=== PATIENT | female | born 1955 | race Caucasian/White ===

== ENCOUNTER 2022-07-06 11:12 | Emergency (ER) | payer MEDICARE, MEDICAID, SELFPAY ==
[2022-07-06 11:27] VITALS: BP 105/69; PULSE 95; RESP 14; TEMP 37.2; O2SAT 96; BMI 16.5
--- NOTE | 2022-07-06 16:58 | PC.NURSE ---
ATTEMPTED TO CALL PATIENT INTO ED. NO ANSWER IN WAITING ROOM
== END 2022-07-06 17:30 | disposition left against medical advice (07) ==
PROVIDERS: Emergency Provider Emergency Medicine
DX: R51.9 Headache, unspecified (principal); R04.0 Epistaxis
CPT/HCPCS: 99281

== ENCOUNTER 2023-03-22 05:50 | Emergency (ER) | payer MEDICARE, MEDICAID, SELFPAY ==
--- NOTE | 2023-03-22 | ECG_ITS ---
Test Reason : SOB Blood Pressure : / mmHG Vent. Rate : 092 BPM Atrial Rate : 092 BPM P-R Int : 118 ms QRS Dur : 088 ms QT Int : 354 ms P-R-T Axes : 075 058 062 degrees QTc Int : 437 ms Poor data quality, interpretation may be adversely affected Normal sinus rhythm Normal ECG When compared with ECG of 08-MAY-2011 11:28, No significant change was found Referred By: Generic ED Physician Electronically Signed By:MIKE BURCIAGA MD
--- NOTE | ~2023-03-22 | XR_ITS ---
EXAMINATION: XR CHEST CLINICAL INFORMATION: Dyspnea COMPARISON: None available. TECHNIQUE: Frontal view of the chest was obtained. FINDINGS: The lungs are hyperinflated, suspicious for underlying COPD. No focal consolidation is seen. No evidence of pneumothorax, pleural effusion, or pulmonary edema. The cardiomediastinal contour is unremarkable. No acute osseous findings are seen. XR/XR chest 1V IMPRESSION: Hyperinflated lungs suspicious for COPD. No acute findings identified.
[2023-03-22 05:59] VITALS: BP 104/71; BP 130/97; PULSE 56; PULSE 93; RESP 29; TEMP 36.9; O2SAT 90; O2SAT 97; BMI 18.3
[2023-03-22 06:08] VITALS: PULSE 98; RESP 24; O2SAT 97
[2023-03-22] MEDS: Albuterol Sulfate 2.5 MG, Albuterol Sulfate (0.083%) 2.5 MG 5 MG INHALE (06:16)
[2023-03-22] MEDS: Albuterol/Iprat 2.5/0.5MG 3 ML AMPUL.NEB INHALE (06:16)
[2023-03-22 06:17] LABS: Basophils Absolute Auto 0.1 X10*3/uL (0.0-0.2); Basophils Percent Auto 0.4 % (0-2); Eosinophils Absolute Auto 0.3 X10*3/uL (0.0-0.4); Hematocrit 38.6 % (37.0-47.0); Hemoglobin 12.7 g/dl (12.0-16.0); Imm Gran Abs Auto 0.06 X10*3/uL (0.00-0.03); Imm Gran Pct Auto 0.4 % (0.0-0.4); Lymphocytes Absolute Auto 2.2 X10*3/uL (1.2-4.9); Lymphocytes Percent Auto 16.2 % (20-40); MANUAL DIFF FLAG NO; Mean Corpuscular HGB Conc 32.9 g/dl (31.0-35.0); Mean Corpuscular Hemoglobin 31.8 pg (27.0-33.0); Mean Corpuscular Volume 96.5 fL (80.0-98.0); Mean Platelet Volume 10.1 fL (9.4-12.3); Monocytes Absolute Auto 0.7 X10*3/uL (0.1-1.2); Monocytes Percent Auto 5.3 % (2-11); Neutrophils Absolute Auto 10.3 x10*3/uL (2.0-8.3); Neutrophils Percent Auto 75.7 % (45-73); Platelet Count 267 X10*3/uL (160-400); Red Cell Distribution Width 12.3 % (11.0-16.0); White Blood Count 13.7 X10*3/uL (4.8-10.8)
[2023-03-22] MEDS: methylPREDNISolone Sod Succ 125 MG/2 ML VIAL IVPUSH (06:19)
[2023-03-22] MEDS: guaiFEN/Codeine SF 200/20/10ML 10 ML LIQUID PO (06:25)
[2023-03-22 06:26] VITALS: BP 137/98; PULSE 107; RESP 28; O2SAT 95
[2023-03-22 06:31] LABS: Alanine Aminotransferase 14 U/L (0-31); Albumin Level 3.6 g/dL (3.5-5.0); Alkaline Phosphatase 94 U/L (39-117); Anion Gap 12 (12-20); Aspartate Amino Transferase 16 U/L (5-31); Bilirubin Total 0.2 mg/dL (0.0-1.0); Blood Urea Nitrogen 11 mg/dL (9-16); COVID-19 Test Negative (Negative); Calcium 8.8 mg/dL (8.4-10.2); Carbon Dioxide 25 mmol/L (22-29); Chloride 111 mmol/L (96-108); Creatinine Clr Calc Pharmacy 55.8; Estimated Glomerular Filt Rate > 60; Glucose Random 99 mg/dL (60-115); IDNOW Serial# 6674DD1D; Sodium 145 mmol/L (135-145); Total Protein 6.4 g/dL (6.5-8.0)
--- NOTE | 2023-03-22 06:52 | ED_ITS ---
HPI - SOB/Dyspnea General Chief Complaint: Dyspnea Stated Complaint: Difficulty breathing Time Seen by Provider: 03/22/23 06:38 Source: patient Mode of arrival: ambulatory Limitations: no limitations History of Present Illness HPI Narrative: This is a 67-year-old female history of emphysema, presenting to the emergency department with worsening dry cough, patient reports is been going on for a week however significantly worse over the past 2 days, patient reports she is taking treatments at home with little to no relief. According to report obtained by EMS and nursingpatient was hypoxic and with labored breathing upon her arrival and was having difficulty speaking in full sentences. Patient reports sore chest with cough however no chest pain. She denies sick contacts. She denies fevers, chills, nausea, vomiting, abdominal pain, headache, vision changes, dizziness, weakness, fevers and chills. Patient former smoker however no longer smokes. Related Data Previous Rx's Medication Instructions Recorded albuterol sulfate 2.5 mg/3 mL 2.5 mg (3 mL) inhalation Q6H #75 mL 03/22/23 (0.083 %) solution for nebulization albuterol sulfate 90 mcg/actuation 2 inh inhalation Q4-6H PRN 03/22/23 breath activated powder inhaler shortness of breath or wheezing #1 ea doxycycline hyclate 100 mg capsule 100 mg PO BID 10 days #20 caps 03/22/23 prednisone 20 mg tablet 40 mg PO DAILY 5 days #10 tabs 03/22/23 Allergies Allergy/AdvReac Type Severity Reaction Status Date / Time No Known Allergies Allergy Verified 03/22/23 06:05 Review of Systems Review of Systems: Constitutional : No Weight loss, No Fever, No Chills, No Fatigue, No Malaise ENT/Mouth : No sore throat, No Rhinorrhea Eyes: No Eye Pain, No Swelling, No Redness Cardiovascular : No Chest Pain, No SOB, No Dyspnea on Exertion, No Orthopnea, No Edema, No Palpitations Respiratory : + Cough, No Sputum, No Wheezing Gastrointestinal : No Nausea, No Vomiting, No Diarrhea, No Constipation, No abdominal Pain, No Hematochezia, No Melena Genitourinary : No Dysuria, No Urinary Frequency, No Hematuria, Musculoskeletal : No joint pain, No Myalgias, No Joint Swelling Skin : No Skin Lesions, No rash Neuro : No Weakness, No Numbness, No Dizziness, No Headache Psych : No Anxiety/Panic, No Depression All other systems reviewed and are negative Yes all other systems are reviewed and are negative [facility] Past Medical History Attestation statement: The following information was validated with the patient. Source: old records reviewed and nursing notes reviewed Social History Social History Alcohol intake: current Alcohol intake frequency: holidays/special occasions only Smoked in Last 30 Days: No Use of substances other than those prescribed or required for medical reasons: No Advance Directives: No Advance Directives Information Provided: Yes Physical Exam Vital Signs: Vital Signs: Last Vital Signs Temp 98.8 F 03/22/23 07:10 Pulse 92 03/22/23 09:30 Resp 18 03/22/23 09:30 BP 135/43 L 03/22/23 09:30 Pulse Ox 95 03/22/23 09:30 O2 Del Method Room Air 03/22/23 09:30 BMI result Body Mass Index 18.3 vss Appearance: Alert.? Oriented X3.? Mild acute distress.? Head: Normocephalic, atraumatic, no step-offs or deformities Eyes: Pupils equal, round and reactive to light.? ENT: Pharynx normal.? Neck: Normal inspection.? Neck supple.? CVS: Normal heart rate and rhythm.? Pulses normal.? Respiratory: mild respiratory distress.? Breath sounds diminished bilaterally with expiratory wheezing throughout.? Abdomen: Soft and nontender.? Skin: Skin warm and dry.? Normal skin color.? Normal skin turgor.? Extremities: No lower extremity edema.? No calf ttp. 5/5 strength to bilateral upper and lower extremities Back: No midline tenderness, no C-spine tenderness, full range of motion, no CVA tenderness bilaterally Neuro: Oriented X 3.? No motor deficit.? No sensory deficit. CN 2-12 intact Course Reevaluation(s) Reevaluation #1: CBC with leukocytosis 13.7, no left shift. Potassium of 3.0 oral potassium ordered. No other abnormalities on chemistry. Patient's COVID is Negative. Chest x-ray with hyperinflated lung suspicious for COPD. Patient receiving breathing treatments saturating low 90s. Continues to cough. patient is tachycardic likely secondary to breathing treatments. Still tachypneic and with labored breathing. Magnesium, blood cultures, lactic acid and ceftriaxone have been ordered. Time: 07:06 Reevaluation #2: lactic acid elevated at 2.2, low potassium 3.0 oral potassium ordered. Patient does have a leukocytosis 13.7, no left shift. I do suspect acute COPD exacerba tion. X-ray consistent with COPD as well. Patient continues to be tachypneic, in mild respiratory distress. She is saturating 90% on room air at rest. Tachycardia likely secondary to breathing treatments. Plan is for hospital admission. Time: 08:25 Reevaluation #3: Patient now tells me she is unable to find manager child for her grandchild therefore will not be staying in the hospital. Patient was evaluated by the hospitalist who also felt like she would benefit from hospital admission. Patient is refusing. She states that she has other responsibilities she has to take care of. Will discharge her home with antibiotics, steroids. And albuterol treatments. Patient will be leaving against medical advice. Patient appears better than she did when she 1st came in. She is no longer tachypneic respiratory rate of 18, saturating 94% on room air. Nonlabored. Will discharge home advised to return if symptoms worsen Time: :25 Medications Administered Discontinued Medications Generic Name Dose Route Start Last Admin Trade Name Freq PRN Reason Stop Dose Admin Albuterol Sulfate 2.5 mg/ 5 mg 03/22/23 06:13 03/22/23 06:16 Albuterol Sulfate 2.5 mg INHALE 03/22/23 06:14 5 mg ONCE ONE Administration Albuterol/Ipratropium 3 ml 03/22/23 06:13 03/22/23 06:16 Albuterol/Iprat 2.5/0.5mg 3 Ml Ampul.Neb INHALE 03/22/23 06:14 3 ml ONCE ONE Administration Guaifenesin/Codeine Phosphate 10 ml 03/22/23 06:21 03/22/23 06:25 Guaifen/Codeine Sf 200/20/10ml 10 Ml Liquid PO 03/22/23 06:22 10 ml ONCE ONE Administration Magnesium Sulfate 2 gm in 50 mls @ 25 mls/hr 03/22/23 06:53 03/22/23 08:04 Magnesium Sulfate/H2o IV 03/22/23 08:52 Infused ONCE ONE Infusion Ceftriaxone Sodium 1 gm/ 50 mls @ 100 mls/hr 03/22/23 07:04 03/22/23 08:04 Sodium Chloride IV 03/22/23 07:33 100 mls/hr ONCE ONE Administration Sodium Chloride 1,000 mls @ 999 mls/hr 03/22/23 08:15 03/22/23 09:04 Ns IV 03/22/23 09:15 999 mls/hr .Q1H1M MADIHA Administration Methylprednisolone Sodium Succinate 125 mg 03/22/23 06:15 03/22/23 06:19 Methylprednisolone Sod Succ 125 Mg/2 Ml Vial IVPUSH 03/22/23 06:16 125 mg ONCE ONE Administration Potassium Chloride 40 meq 03/22/23 06:53 03/22/23 07:06 Potassium Chloride Packet 20 Meq Packet PO 03/22/23 06:54 40 meq ONCE ONE Administration Medical Decision Making Medical Decision Making [facility] Narrative: 0655 67-year-old female presents with dry cough for past week, and difficulty breathing. History of emphysema. Patient does not wear oxygen at home physical exam significant for mild respiratory distress.? Breath sounds diminished bilaterally with expiratory wheezing throughout.? concerns for chronic lung disease versus pneumonia versus allergies versus bronchitis versus viral illness. Unlikely PE, patient without significant risk factors, this seems to be similar to her chronic lung disease flares. unlikely ACS. Plan at this time labs, imaging, breathing treatments, magnesium, Solu-Medrol, VBG Differential Diagnosis Differential Diagnoses: The differential diagnosis associated with the presentation includes concerns for chronic lung disease versus pneumonia versus allergies versus bronchitis versus viral illness. Unlikely PE, patient without significant risk factors, this seems to be similar to her chronic lung disease flares. unlikely ACS. Admission/Observation Consideration of admission/observation: Escalation of care including admission/observation considered possible hospital admission Lab Data [facility] Lab Attestation statement: I reviewed the patient's lab results. 03/22/23 06:11 03/22/23 06:11 Labs: Lab Results 03/22/23 03/22/23 03/22/23 Range/Units 06:11 06:11 06:11 WBC 13.7 H (4.8-10.8) X10*3/uL RBC 4.00 L (4.20-5.50) X10*6/uL Hgb 12.7 (12.0-16.0) g/dl Hct 38.6 (37.0-47.0) % MCV 96.5 (80.0-98.0) fL MCH 31.8 (27.0-33.0) pg MCHC 32.9 (31.0-35.0) g/dl RDW 12.3 (11.0-16.0) % Plt Count 267 (160-400) X10*3/uL MPV 10.1 (9.4-12.3) fL Immature Gran % (Auto) 0.4 (0.0-0.4) % Neut % (Auto) 75.7 H (45-73) % Lymph % (Auto) 16.2 L (20-40) % Davidson % (Auto) 5.3 (2-11) % Eos % (Auto) 2.0 (0-4) % Baso % (Auto) 0.4 (0-2) % Lymph # (Auto) 2.2 (1.2-4.9) X10*3/uL Davidson # (Auto) 0.7 (0.1-1.2) X10*3/uL Eos # (Auto) 0.3 (0.0-0.4) X10*3/uL Baso # (Auto) 0.1 (0.0-0.2) X10*3/uL Abs Immat Gran (auto) 0.06 H (0.00-0.03) X10*3/uL Absolute Neuts (auto) 10.3 H (2.0-8.3) x10*3/uL Absolute Nucleated RBC 0.000 (0.0-0.012) X10*3/uL Nucleated RBC % (auto) 0.0 (0.0-0.2) /100WBC VBG pH (7.32-7.43) VBG pCO2 mmHg VBG pO2 mmHg VBG HCO3 (22-26) mmol/L VBG O2 Saturation % VBG Base Excess mmol/L Sodium 145 (135-145) mmol/L Potassium 3.0 L (3.3-5.1) mmol/L Chloride 111 H (96-108) mmol/L Carbon Dioxide 25 (22-29) mmol/L Anion Gap 12 (12-20) BUN 11 (9-16) mg/dL Creatinine 0.72 (0.5-1.4) mg/dL Estim Creat Clear Calc 55.8 Estimated GFR > 60 Random Glucose 99 (60-115) mg/dL Lactic Acid (0.5-2.0) mmol/L Calcium 8.8 (8.4-10.2) mg/dL Total Bilirubin 0.2 (0.0-1.0) mg/dL AST 16 (5-31) U/L ALT 14 (0-31) U/L Alkaline Phosphatase 94 (39-117) U/L Total Protein 6.4 L (6.5-8.0) g/dL Albumin 3.6 (3.5-5.0) g/dL COVID-19 ([facility]) Negative (Negative) COVID-19 Clin Com See Note 03/22/23 03/22/23 Range/Units 07:40 07:45 WBC (4.8-10.8) X10*3/uL RBC (4.20-5.50) X10*6/uL Hgb (12.0-16.0) g/dl Hct (37.0-47.0) % MCV (80.0-98.0) fL MCH (27.0-33.0) pg MCHC (31.0-35.0) g/dl RDW (11.0-16.0) % Plt Count (160-400) X10*3/uL MPV (9.4-12.3) fL Immature Gran % (Auto) (0.0-0.4) % Neut % (Auto) (45-73) % Lymph % (Auto) (20-40) % Davidson % (Auto) (2-11) % Eos % (Auto) (0-4) % Baso % (Auto) (0-2) % Lymph # (Auto) (1.2-4.9) X10*3/uL Davidson # (Auto) (0.1-1.2) X10*3/uL Eos # (Auto) (0.0-0.4) X10*3/uL Baso # (Auto) (0.0-0.2) X10*3/uL Abs Immat Gran (auto) (0.00-0.03) X10*3/uL Absolute Neuts (auto) (2.0-8.3) x10*3/uL Absolute Nucleated RBC (0.0-0.012) X10*3/uL Nucleated RBC % (auto) (0.0-0.2) /100WBC VBG pH 7.43 (7.32-7.43) VBG pCO2 38 mmHg VBG pO2 65 mmHg VBG HCO3 25 (22-26) mmol/L VBG O2 Saturation 91.0 % VBG Base Excess 1.4 mmol/L Sodium (135-145) mmol/L Potassium (3.3-5.1) mmol/L Chloride (96-108) mmol/L Carbon Dioxide (22-29) mmol/L Anion Gap (12-20) BUN (9-16) mg/dL Creatinine (0.5-1.4) mg/dL Estim Creat Clear Calc Estimated GFR Random Glucose (60-115) mg/dL Lactic Acid 2.2 H* (0.5-2.0) mmol/L Calcium (8.4-10.2) mg/dL Total Bilirubin (0.0-1.0) mg/dL AST (5-31) U/L ALT (0-31) U/L Alkaline Phosphatase (39-117) U/L Total Protein (6.5-8.0) g/dL Albumin (3.5-5.0) g/dL COVID-19 ([facility]) (Negative) COVID-19 Clin Com Independent Interpretation I performed an independent interpretation of an: Plain X-Ray Radiology Impression Discussion of test interpretation with radiology: I have reviewed the radiolog ist's reading. Core Measures AMI core measures followed: Yes Measure exclusions: not indicated Critical Care Time Critical Care Time Critical Care Time: Yes Total Critical Care Time: 35 Attestation: I attest to this time spent taking care of the patient, obtaining history, physical, reviewing labs, imaging Discharge Plan Discharge Clinical Impression: Acute exacerbation of chronic obstructive airways disease, Bronchitis Patient Disposition: Left Against Medical Advice Instructions: Acute Bronchitis (ED), Chronic Bronchitis (ED) Additional Instructions: Take your medications as prescribed. If you were prescribed antibiotics today, it is important that you take your medication to their entirety, do not skip any doses, do not finish them early. Follow-up with your primary care provider this week.follow-up with pulmonology at [facility] who you regularly follow. Return to the emergency department with new or worsening symptoms. Such as fevers, chills, chest pain, shortness of breath, nausea, vomiting, dizziness, headache, vision changes, lethargy In case of emergency call 911 Your leaving against medical advice, medical advice was to be admitted to the hospital, however you stated that you had other obligations to care for. If symptoms worsen please return. Prescriptions: New doxycycline hyclate 100 mg capsule 100 mg PO BID 10 Days Qty: 20 0RF albuterol sulfate 2.5 mg /3 mL (0.083 %) solution for nebulization 2.5 mg inhalation Q6H Qty: 75 0RF prednisone 20 mg tablet 40 mg PO DAILY 5 Days Qty: 10 0RF albuterol sulfate 90 mcg/actuation aerosol powdr breath activated 2 inh inhalation Q4-6H PRN (Reason: shortness of breath or wheezing) Qty: 1 0RF Ref[facility]: [facility] Group] - 2 weeks Stand Alone Forms: Against Medical Advice, Work/School Release Interventions: ED Discharge Assessment Last Done: 03/22/23 09:46
[2023-03-22] MEDS: Magnesium Sulfate/H2O 2 GM/50 ML PIGGYBACK IV (07:06)
[2023-03-22] MEDS: Potassium Chloride Packet 20 MEQ PACKET 40 MEQ PO (07:06)
[2023-03-22 07:10] VITALS: BP 111/50; PULSE 103; RESP 23; TEMP 37.1; O2SAT 90
--- NOTE | 2023-03-22 07:18 | PC.NURSE ---
pt axox4, VSS, sinus tachy on monitor 105-110 bpm, sats remain 88-90% RA, tachypneic; pt placed on 2L NC sats 92%. expiratory wheezes auscultated throughout. skin wpd. cap refill <3 secs. pt medicated per oct. pt denies having questions at this time; call seth within reach.
[2023-03-22 07:53] LABS: VBG Base Excess 1.4 mmol/L; VBG HCO3 25 mmol/L (22-26); VBG pCO2 38 mmHg; VBG pH 7.43 (7.32-7.43); VBG pO2 65 mmHg
[2023-03-22 07:53] LABS: Venous Blood Gas Refer to POC result
[2023-03-22] MEDS: cefTRIAXone sodium 1 GM in 0.9 % Sodium Chloride 50 ML IV (08:04)
[2023-03-22 08:13] LABS: Lactic Acid 2.2 mmol/L (0.5-2.0)
[2023-03-22] MEDS: 0.9 % Sodium Chloride 1,000 ML 999 ML IV (09:04)
[2023-03-22 09:30] VITALS: BP 135/43; PULSE 92; RESP 18; O2SAT 95
[2023-03-22 09:47] LABS: Reflex Lactate? Lactic Acid Added
== END 2023-03-23 03:05 | disposition left against medical advice (07) ==
PROVIDERS: Emergency Medicine; Physician Assistant; Emergency Provider Emergency Medicine; PCP Internal Medicine
DX: J44.1 Chronic obstructive pulmonary disease with (acute) exacerbation (principal); J40 Bronchitis, not specified as acute or chronic; Z87.891 Personal history of nicotine dependence; Z79.899 Other long term (current) drug therapy; Z20.822 Contact with and (suspected) exposure to COVID-19
CPT/HCPCS: 36415; 71045; 80053; 82803; 83605; 85025; 87040; 87635; 93005; 94640; 94664; 96361; 96365; 96366; 96367; 96375; 99285; J0696; J2930; J3475

== ENCOUNTER → 2023-03-22 06:04 | Outpatient (BNV) | payer MEDICARE, MEDICAID, SELFPAY | PROVIDERS: Emergency Provider Emergency Medicine; PCP Internal Medicine; Visit Provider Internal Medicine Cardiovascular Disease | DX: R06.02 Shortness of breath (principal) | CPT/HCPCS: 93010 ==

== ENCOUNTER 2023-03-24 10:12 | Observation (INO) | payer OTHER, SELFPAY ==
[2023-03-24] VITALS (9 sets, daily range): BP systolic 112–140; BP diastolic 52–90; PULSE 86–102; RESP 16–28; TEMP 36.6–36.9; O2SAT 94–99; BMI 18.1
--- NOTE | ~2023-03-24 | XR_ITS ---
EXAMINATION: XR CHEST CLINICAL INFORMATION: Dyspnea. COMPARISON: 03/22/2023 portable chest. TECHNIQUE: Frontal view of the chest was obtained. FINDINGS: Mild lung hyperinflation and mild coarse interstitial markings without focal abnormality or change. The heart and mediastinal structures are unremarkable. XR/XR chest 1V IMPRESSION: Probable chronic mild interstitial changes without cement change. No acute cardiopulmonary process.
--- NOTE | 2023-03-24 10:49 | ECG_ITS ---
Test Reason : SOB Blood Pressure : / mmHG Vent. Rate : 090 BPM Atrial Rate : 090 BPM P-R Int : 114 ms QRS Dur : 084 ms QT Int : 348 ms P-R-T Axes : 062 060 061 degrees QTc Int : 425 ms Normal sinus rhythm Normal ECG When compared with ECG of 22-MAR-2023 06:04, No significant change was found Referred By: Magen Ying Electronically Signed By:MIKE BURCIAGA MD
[2023-03-24] MEDS: Albuterol Sulfate 7.5 MG, Albuterol/Iprat 2.5/0.5MG 3 ML 3 ML INHALE (11:22)
[2023-03-24] MEDS: Magnesium Sulfate/H2O 2 GM/50 ML PIGGYBACK IV (11:52)
[2023-03-24] MEDS: methylPREDNISolone Sod Succ 125 MG/2 ML VIAL IVPUSH (11:52)
[2023-03-24 11:58] LABS: MANUAL DIFF FLAG NO
[2023-03-24 12:00] LABS: Basophils Percent Auto 0.5 % (0-2); Eosinophils Percent Auto 0.1 % (0-4); Hematocrit 43.5 % (37.0-47.0); Hemoglobin 13.9 g/dl (12.0-16.0); Imm Gran Abs Auto 0.04 X10*3/uL (0.00-0.03); Imm Gran Pct Auto 0.5 % (0.0-0.4); Lymphocytes Absolute Auto 1.2 X10*3/uL (1.2-4.9); Lymphocytes Percent Auto 14.4 % (20-40); Mean Corpuscular Hemoglobin 31.4 pg (27.0-33.0); Mean Corpuscular Volume 98.2 fL (80.0-98.0); Monocytes Absolute Auto 0.1 X10*3/uL (0.1-1.2); Monocytes Percent Auto 1.6 % (2-11); Neutrophils Absolute Auto 6.8 x10*3/uL (2.0-8.3); Neutrophils Percent Auto 82.9 % (45-73); Platelet Count 315 X10*3/uL (160-400); Red Blood Count 4.43 X10*6/uL (4.20-5.50); Red Cell Distribution Width 12.3 % (11.0-16.0); White Blood Count 8.2 X10*3/uL (4.8-10.8)
[2023-03-24 12:01] LABS: Appearance Urine Clear; Color Urine Yellow; Glucose Urine UA Negative (Negative); Leukocyte Esterase Urine Negative (Negative); Nitrite Urine Negative (Negative); PH 5.5 (5.0-9.0); Specific Gravity - Urine <= 1.005 (1.005-1.025); Urine Blood Negative (Negative); Urine Ketones Negative (Negative); Urine Protein Negative (Neg-Trace)
[2023-03-24 12:05] LABS: INTERNATIONAL NORM RATIO 0.9 (0.9-1.1); Prothrombin Time 11.1 SEC (11.1-13.3)
[2023-03-24 12:07] LABS: Partial Thromboplastin Time 29.3 SEC (26.0-36.4)
[2023-03-24 12:13] LABS: COVID-19 Test Negative (Negative); IDNOW Serial# 08D9AD1C
[2023-03-24 12:19] LABS: Anion Gap 13 (12-20); Blood Urea Nitrogen 13 mg/dL (9-16); Calcium 9.4 mg/dL (8.4-10.2); Carbon Dioxide 25 mmol/L (22-29); Chloride 109 mmol/L (96-108); Estimated Glomerular Filt Rate > 60; Glucose Random 119 mg/dL (60-115); Potassium 4.4 mmol/L (3.3-5.1); Sodium 143 mmol/L (135-145)
[2023-03-24 12:20] LABS: Lactic Acid 3.9 mmol/L (0.5-2.0)
--- NOTE | 2023-03-24 12:33 | PHA.MEDREC ---
Pharmacy Consult ? Medication Reconciliation Pharmacy has completed the medication reconciliation. spoke with patient to confirm medications. She was recently prescribed Breztri inhaler but has not opened it or used it.
--- NOTE | 2023-03-24 12:37 | ED.SOB ---
HPI - SOB/Dyspnea General Chief Complaint: Dyspnea Stated Complaint: SOB X'S 2 DAYS Time Seen by Provider: 03/24/23 10:17 Source: patient and EMS Mode of arrival: EMS Limitations: no limitations History of Present Illness HPI Narrative: 67-year-old female with history of COPD, currently on oxygen presents with shortness of breath. Patient was initially evaluated on March 22. She presented with a dry cough, shortness of breath for period of 1 week. However over the previously 2 days, patient was complaining of progressive worsening that her home treatments were not Assisting. She was transported by ambulance. She was found to be hypoxic with labored respirations. She was having difficulty speaking in complete sentences. Patient was recommended to be admitted to the hospital. However, she is side that she needs to leave because of childcare for grandchild. However her symptoms have been progressing ever since her bleeding from the emergency department. MD elicited complaint: shortness of breath and cough Pertinent past history: COPD Onset (ago): day(s) (10) Timing: constant Severity: severe Exacerbating factors: exertion Relieving factors: rest Associated symptoms: cough and wheezing Treatment prior to arrival: none Related Data Home oxygen amount: none Home Medications Medication Instructions Recorded Confirmed aspirin 81 mg tablet,delayed 81 mg PO DAILY 03/24/23 03/24/23 release bupropion HCl 150 mg tablet,12 hr 150 mg PO BID 03/24/23 03/24/23 sustained-release hiprmabqfv-bggaflqihclbn-gqrlsruo 1 tab PO DAILY PRN Headache 03/24/23 03/24/23 50 mg-325 mg-40 mg tablet calcium carbonate 600 mg-vitamin 1 tab PO BID 03/24/23 03/24/23 D3 10 mcg (400 unit) tablet diazepam 5 mg tablet 5 mg PO QID PRN Anxiety 03/24/23 03/24/23 fluticasone fur. 100 mcg-umeclid 1 ea inhalation DAILY 03/24/23 03/24/23 62.5 mcg-vilant 25 mcg inhalat.powder (Trelegy Ellipta) hydroxyzine HCl 25 mg tablet 12.5 mg PO BEDTIME PRN Sleep 03/24/23 03/24/23 nicotine 21 mg/24 hr daily 1 patch topical DAILY 03/24/23 03/24/23 transdermal patch Previous Rx's Medication Instructions Recorded albuterol sulfate 2.5 mg/3 mL 2.5 mg (3 mL) inhalation Q6H #75 mL 03/22/23 (0.083 %) solution for nebulization albuterol sulfate 90 mcg/actuation 2 inh inhalation Q4-6H PRN 03/22/23 breath activated powder inhaler shortness of breath or wheezing #1 ea doxycycline hyclate 100 mg capsule 100 mg PO BID 10 days #20 caps 03/22/23 prednisone 20 mg tablet 40 mg PO DAILY 5 days #10 tabs 03/22/23 Allergies Allergy/AdvReac Type Severity Reaction Status Date / Time No Known Allergies Allergy Verified 03/22/23 06:05 Review of Systems Review of Systems: CONSTITUTIONAL: Denies weight loss, fever and chills. HEENT: Denies changes in vision and hearing. RESPIRATORY: + SOB and cough. CV: Denies palpitations no CP. GI: Denies abdominal pain, nausea, vomiting and diarrhea. : Denies dysuria and urinary frequency. MSK: Denies myalgia and joint pain. SKIN: Denies rash and pruritus. NEUROLOGICAL: Denies headache and syncope. PSYCHIATRIC: Denies recent changes in mood. Denies anxiety and depression. All other ROS are negative unless in [facility] Social History Social History Alcohol intake: current Alcohol intake frequency: holidays/special occasions only Smoked in Last 30 Days: Yes Use of substances other than those prescribed or required for medical reasons: No Advance Directives: No Physical Exam Vital Signs: Vital Signs: Last Vital Signs Temp 98.1 F 03/24/23 10:16 Pulse 86 03/24/23 11:22 Resp 26 H 03/24/23 11:22 BP 112/60 03/24/23 10:16 Pulse Ox 99 03/24/23 10:16 O2 Del Method Room Air 03/24/23 10:16 BMI result Body Mass Index 18.1 GEN: Well developed, no acute distress, alert, oriented HEENT: Normocephalic, atraumatic, normal external ears, nose appears normal, no oropharyngeal edema or exudates Eyes: Normal to appearance Neck: Supple, no lymphadenopathy Respiratory: Tachypnea, cough, prolonged expiration, no wheezes, accessory muscle use, clear to auscultation bilaterally Cardiovascular: Regular rate and rhythm, no murmurs rubs or gallops Abdomen: Soft, nontender, nondistended, no guarding, no rebound Back: No CVA tenderness Extremities: No clubbing cyanosis or edema Neurologic: No focal neurologic deficits, cranial nerves 2-12 intact, strength is 5/5 bilaterally Skin: No rash Course Reevaluation(s) Reevaluation #1: patient has received DuoNeb x3, is feeling somewhat improved. Time: 12:30 Reevaluation #2: Patient does have an elevated lactic acid level. I do not believe patient is septic however, I will order antibiotics for COPD exacerbation and I will order IV fluids as well. Reevaluation #3: I have ordered an ABG to assess her acid-base status as well as her gas exchange capability. Patient continues to be tachypneic. Time: 12:49 Consultations Consultation #1: Hospitalist accepted patient to their service. Time: 14:14 Medications Administered Generic Name Dose Route Start Last Admin Trade Name Freq PRN Reason Stop Dose Admin Azithromycin 500 mg/ Sodium 250 mls @ 125 mls/hr 03/24/23 12:48 03/24/23 13:28 Chloride IV 03/24/23 14:47 125 mls/hr ONCE ONE Administration Discontinued Medications Generic Name Dose Route Start Last Admin Trade Name Freq PRN Reason Stop Dose Admin Albuterol Sulfate 7.5 mg/ 0 mg 03/24/23 10:47 03/24/23 11:22 Albuterol/Ipratropium 3 ml INHALE 03/24/23 10:48 5 each ONCE ONE Administration Magnesium Sulfate 2 gm in 50 mls @ 25 mls/hr 03/24/23 10:47 03/24/23 11:52 Magnesium Sulfate/H2o IV 03/24/23 12:46 25 mls/hr ONCE ONE Administration Ceftriaxone Sodium 1 gm/ 50 mls @ 100 mls/hr 03/24/23 12:48 03/24/23 13:00 Sodium Chloride IV 03/24/23 13:17 100 mls/hr ONCE ONE Administration Sodium Chloride 1,350 mls @ 1,350 mls/hr 03/24/23 12:50 03/24/23 13:00 Ns 30 ml/kg infuse over 1 hr (1350 ml) 03/24/23 13:49 1,350 mls/hr IV Administration .Q1H STA Methylprednisolone Sodium Succinate 125 mg 03/24/23 10:47 03/24/23 11:52 Methylprednisolone Sod Succ 125 Mg/2 Ml Vial IVPUSH 03/24/23 10:48 125 mg ONCE ONE Administration Medical Decision Making Medical Decision Making [facility] [place] Narrative: Patient presents with acute dyspnea. Symptoms started 10 days ago. Examination revealed the tachypneic, accessory muscle use prolonged expiration. Differential diagnosis includes COPD exacerbation, asthma exacerbation, CHF, pneumonia, bronchitis. Plan will be to obtain routine laboratory analysis, chest x-ray, EKG. I will treat the patient for COPD exacerbation as this is the most likely etiology. Patient will need to be hospitalized. She is certainly failed outpatient management. Differential Diagnosis Differential Diagnoses: The differential diagnosis associated with the presentation includes ( See above) Admission/Observation Consideration of admission/observation: Escalation of care including admission/observation considered Consult Healthcare Provider Management of the patient was discussed with: Hospitalist Lab Data [facility] [place] Lab Attestation statement: I reviewed the patient's lab results. 03/24/23 11:47 03/24/23 11:47 Labs: Lab Results 03/24/23 03/24/23 03/24/23 Range/Units 11:47 11:47 11:47 WBC 8.2 (4.8-10.8) X10*3/uL RBC 4.43 (4.20-5.50) X10*6/uL Hgb 13.9 (12.0-16.0) g/dl Hct 43.5 (37.0-47.0) % MCV 98.2 H (80.0-98.0) fL MCH 31.4 (27.0-33.0) pg MCHC 32.0 (31.0-35.0) g/dl RDW 12.3 (11.0-16.0) % Plt Count 315 (160-400) X10*3/uL MPV 10.0 (9.4-12.3) fL Immature Gran % (Auto) 0.5 H (0.0-0.4) % Neut % (Auto) 82.9 H (45-73) % Lymph % (Auto) 14.4 L (20-40) % [place] % (Auto) 1.6 L (2-11) % Eos % (Auto) 0.1 (0-4) % Baso % (Auto) 0.5 (0-2) % Lymph # (Auto) 1.2 (1.2-4.9) X10*3/uL [place] # (Auto) 0.1 (0.1-1.2) X10*3/uL Eos # (Auto) 0.0 (0.0-0.4) X10*3/uL Baso # (Auto) 0.0 (0.0-0.2) X10*3/uL Abs Immat Gran (auto) 0.04 H (0.00-0.03) X10*3/uL Absolute Neuts (auto) 6.8 (2.0-8.3) x10*3/uL Absolute Nucleated RBC 0.000 (0.0-0.012) X10*3/uL Nucleated RBC % (auto) 0.0 (0.0-0.2) /100WBC PT (11.1-13.3) SEC INR (0.9-1.1) APTT (26.0-36.4) SEC Sodium 143 (135-145) mmol/L Potassium 4.4 D (3.3-5.1) mmol/L Chloride 109 H (96-108) mmol/L Carbon Dioxide 25 (22-29) mmol/L Anion Gap 13 (12-20) BUN 13 (9-16) mg/dL Creatinine 0.78 (0.5-1.4) mg/dL Estim Creat Clear Calc 51.0 Estimated GFR > 60 Random Glucose 119 H (60-115) mg/dL Lactic Acid (0.5-2.0) mmol/L Calcium 9.4 D (8.4-10.2) mg/dL Urine Color Urine Appearance Urine pH (5.0-9.0) Ur Specific [place] (1.005-1.025) Urine Protein (Neg-Trace) mg/dL Urine Glucose (UA) (Negative) mg/dL Urine Ketones (Negative) mg/dL Urine Blood (Negative) Urine Nitrite (Negative) Ur Leukocyte Esterase (Negative) COVID-19 ([facility]) Negative (Negative) COVID-19 Clin Com See Note 03/24/23 03/24/23 03/24/23 Range/Units 11:47 11:47 11:47 WBC (4.8-10.8) X10*3/uL RBC (4.20-5.50) X10*6/uL Hgb (12.0-16.0) g/dl Hct (37.0-47.0) % MCV (80.0-98.0) fL MCH (27.0-33.0) pg MCHC (31.0-35.0) g/dl RDW (11.0-16.0) % Plt Count (160-400) X10*3/uL MPV (9.4-12.3) fL Immature Gran % (Auto) (0.0-0.4) % Neut % (Auto) (45-73) % Lymph % (Auto) (20-40) % [place] % (Auto) (2-11) % Eos % (Auto) (0-4) % Baso % (Auto) (0-2) % Lymph # (Auto) (1.2-4.9) X10*3/uL [place] # (Auto) (0.1-1.2) X10*3/uL Eos # (Auto) (0.0-0.4) X10*3/uL Baso # (Auto) (0.0-0.2) X10*3/uL Abs Immat Gran (auto) (0.00-0.03) X10*3/uL Absolute Neuts (auto) (2.0-8.3) x10*3/uL Absolute Nucleated RBC (0.0-0.012) X10*3/uL Nucleated RBC % (auto) (0.0-0.2) /100WBC PT 11.1 (11.1-13.3) SEC INR 0.9 (0.9-1.1) APTT 29.3 (26.0-36.4) SEC Sodium (135-145) mmol/L Potassium (3.3-5.1) mmol/L Chloride (96-108) mmol/L Carbon Dioxide (22-29) mmol/L Anion Gap (12-20) BUN (9-16) mg/dL Creatinine (0.5-1.4) mg/dL Estim Creat Clear Calc Estimated GFR Random Glucose (60-115) mg/dL Lactic Acid 3.9 H* (0.5-2.0) mmol/L Calcium (8.4-10.2) mg/dL Urine Color Yellow Urine Appearance Clear Urine pH 5.5 (5.0-9.0) Ur Specific [place] <= 1.005 (1.005-1.025) Urine Protein Negative (Neg-Trace) mg/dL Urine Glucose (UA) Negative (Negative) mg/dL Urine Ketones Negative (Negative) mg/dL Urine Blood Negative (Negative) Urine Nitrite Negative (Negative) Ur Leukocyte Esterase Negative (Negative) COVID-19 ([facility]) (Negative) COVID-19 Clin Com ABG Data Attestation ABG: I personally reviewed and interpreted this ABG as follows: (Hypoxia, pH 7.43 to, likely metabolic alkalosis with a slight respiratory acidosis) Independent Interpretation I performed an independent interpretation of an: EKG ( normal sinus rhythm heart rate 90, tremulous baseline, no acute ST elevations depressions, normal intervals) and Plain X-Ray ( no acute cardiopulmonary disease) Radiology Impression Discussion of test interpretation with radiology: I have reviewed the radiologist's reading. Radiologist Impression: XR/XR chest 1V IMPRESSION: Probable chronic mild interstitial changes without cement change. No acute cardiopulmonary process. ? Dictated By: Anthony Harkins MD Signed By: <Electronically signed by Anthony Harkins MD in OV> 03/24/23 1101 Independent Historian Clinical information obtained from an independent historian. History obtained from or confirmed by: EMS Prescription Management I considered prescription management with: Pain Medication and Antibiotic Chronic Conditions Patient?s care impacted by: Other (COPD) Critical Care Time Critical Care Time Total Critical Care Time: 47 Attestation: Approximately 47 minutes of critical care time was spent on patient care including direct patient care, re-evaluation, interpretation and medical data, medical management, documentation outside of any procedures. Discharge Plan Discharge Clinical Impression: Acute exacerbation of chronic obstructive airways disease Patient Disposition: Admitted As Inpatient
[2023-03-24] MEDS: SODIUM CHLORIDE 1350 ML IV (13:00)
[2023-03-24] MEDS: cefTRIAXone sodium 1 GM in 0.9 % Sodium Chloride 50 ML IV (13:00)
[2023-03-24] MEDS: Azithromycin 500 MG in 0.9 % Sodium Chloride 250 ML 125 MG IV (13:28)
[2023-03-24 13:56] LABS: Reflex Lactate? Lactic Acid Added
[2023-03-24 15:20] LABS: ~Lactic Acid-LAB USE ONLY 4.1 mmol/L (0.5-2.0)
[2023-03-24] MEDS: Ketorolac Tromethamine 15 MG/ML VIAL IVPUSH (15:39)
--- NOTE | 2023-03-24 16:45 | PM.IMHP ---
History of Present Illness Date of Service: 03/24/23 Chief Complaint: SOB, dyspnea A 67 years old lady with PMH of COPD , ex-smoker and anxiety who presents to the hospital with dyspnea and difficulties breathing. She was evaluated in ED on 03/22 and discharged home on PO steroids and antibiotics with rescue inhalor but she reports did not improve as she was feeling very distressed walking few steps with associated dyspnea and weakness. denies any chest pain, palpitations, sweating, nausea, vomitng or urinary symptoms. In ED she was unable to finish sentences, using accessory muscles but did not drop her oxygen level. CXR was negative for any infiltrates. Review of Systems Review of Systems: No fever, chills but reports weakness No chest pain, palpitation complaining of shortness of breath or coughing No abdominal pain, nausea or vomiting No urinary symptoms No any rash or wounds PMFSH Medical History (Updated 03/24/23 @ 16:54 by Brina Ellison MD) COPD (chronic obstructive pulmonary disease) Social History Alcohol intake: current Alcohol intake frequency: holidays/special occasions only Smoked in Last 30 Days: Yes Use of substances other than those prescribed or required for medical reasons: No Advance Directives: No Meds Allergies Allergy/AdvReac Type Severity Reaction Status Date / Time No Known Allergies Allergy Verified 03/22/23 06:05 Active Medications: Current Medications Pharmacy Consult (Consult Rx Perform Med Rec) 1 each MISCELLANE ONCE PRN PRN Reason: Consult order Home Medications Medication Instructions Recorded Confirmed Last Taken Type aspirin 81 mg tablet,delayed 81 mg PO DAILY 03/24/23 03/24/23 Unknown History release bupropion HCl 150 mg tablet,12 hr 150 mg PO BID 03/24/23 03/24/23 Unknown History sustained-release ximcjkzbwm-fzfyajsfotzqk-tchwwhtf 1 tab PO DAILY PRN Headache 03/24/23 03/24/23 Unknown History 50 mg-325 mg-40 mg tablet calcium carbonate 600 mg-vitamin 1 tab PO BID 03/24/23 03/24/23 Unknown History D3 10 mcg (400 unit) tablet diazepam 5 mg tablet 5 mg PO QID PRN Anxiety 03/24/23 03/24/23 Unknown History fluticasone fur. 100 mcg-umeclid 1 ea inhalation DAILY 03/24/23 03/24/23 Unknown History 62.5 mcg-vilant 25 mcg inhalat.powder (Trelegy Ellipta) hydroxyzine HCl 25 mg tablet 12.5 mg PO BEDTIME PRN Sleep 03/24/23 03/24/23 Unknown History nicotine 21 mg/24 hr daily 1 patch topical DAILY 03/24/23 03/24/23 Unknown History transdermal patch Physical Exam Vital Signs and Narrative: Vital Signs: Last Vital Signs Temp 98.4 F 03/24/23 15:41 Pulse 97 03/24/23 15:41 Resp 16 03/24/23 15:41 BP 136/54 L 03/24/23 15:41 Pulse Ox 96 03/24/23 15:41 O2 Del Method Room Air 03/24/23 15:41 BMI result Body Mass Index 18.1 Const: Other: Constitutional : Awake, interactive, in mild respiratory distress Neck : Normal inspection, Supple Cardiovascular : RRR, no JVP, no lower extremity edema Respiratory : decreased bilateral air entry, no crackles, expiratory wheezes, using accessory muscle Gastrointestinal: soft, lax, Normal bowel sounds, Non tender Skin : Warm, Dry Neurological : Alert & oriented x3, No focal deficit Results Labs 03/24/23 11:47 03/24/23 11:47 Labs: Laboratory Results - last 24 hr 03/24/23 03/24/23 03/24/23 11:47 11:47 11:47 MCV 98.2 H MCH 31.4 MCHC 32.0 RDW 12.3 Plt Count 315 MPV 10.0 Immature Gran % (Auto) 0.5 H Neut % (Auto) 82.9 H Lymph % (Auto) 14.4 L [place] % (Auto) 1.6 L Eos % (Auto) 0.1 Baso % (Auto) 0.5 Lymph # (Auto) 1.2 [place] # (Auto) 0.1 Eos # (Auto) 0.0 Baso # (Auto) 0.0 Abs Immat Gran (auto) 0.04 H Absolute Neuts (auto) 6.8 Absolute Nucleated RBC 0.000 Nucleated RBC % (auto) 0.0 PT INR APTT Anion Gap 13 Estim Creat Clear Calc 51.0 Estimated GFR > 60 Random Glucose 119 H Lactic Acid Lactic Acid F/U @ 2Hr Calcium 9.4 D Urine Color Urine Appearance Urine pH Ur Specific [place] Urine Protein Urine Glucose (UA) Urine Ketones Urine Blood Urine Nitrite Ur Leukocyte Esterase COVID-19 ([facility]) Negative COVID-19 [employer] See Note 03/24/23 03/24/23 03/24/23 11:47 11:47 11:47 MCV MCH MCHC RDW Plt Count MPV Immature Gran % (Auto) Neut % (Auto) Lymph % (Auto) [place] % (Auto) Eos % (Auto) Baso % (Auto) Lymph # (Auto) [place] # (Auto) Eos # (Auto) Baso # (Auto) Abs Immat Gran (auto) Absolute Neuts (auto) Absolute Nucleated RBC Nucleated RBC % (auto) PT 11.1 INR 0.9 APTT 29.3 Anion Gap Estim Creat Clear Calc Estimated GFR Random Glucose Lactic Acid 3.9 H* Lactic Acid F/U @ 2Hr Calcium Urine Color Yellow Urine Appearance Clear Urine pH 5.5 Ur Specific [place] <= 1.005 Urine Protein Negative Urine Glucose (UA) Negative Urine Ketones Negative Urine Blood Negative Urine Nitrite Negative Ur Leukocyte Esterase Negative COVID-19 ([facility]) COVID-[employer] 03/24/23 14:51 MCV MCH MCHC RDW Plt Count MPV Immature Gran % (Auto) Neut % (Auto) Lymph % (Auto) [place] % (Auto) Eos % (Auto) Baso % (Auto) Lymph # (Auto) [place] # (Auto) Eos # (Auto) Baso # (Auto) Abs Immat Gran (auto) Absolute Neuts (auto) Absolute Nucleated RBC Nucleated RBC % (auto) PT INR APTT Anion Gap Estim Creat Clear Calc Estimated GFR Random Glucose Lactic Acid Lactic Acid F/U @ 2Hr 4.1 H* Calcium Urine Color Urine Appearance Urine pH Ur Specific [place] Urine Protein Urine Glucose (UA) Urine Ketones Urine Blood Urine Nitrite Ur Leukocyte Esterase COVID-19 ([facility]) COVID-19 [employer] [facility] Radiologist's Impressions: Impressions Chest X-Ray 03/24/23 10:57 IMPRESSION: Probable chronic mild interstitial changes without cement change. No acute cardiopulmonary process. Assessment and Plan (1) Acute exacerbation of chronic obstructive airways disease: Status: Acute Plan A 67 years old lady with PMH of COPD , ex-smoker and anxiety who presents to the hospital with dyspnea and difficulties breathing. COPD Exacerbation Failed outpatient treatment IV steroids Bronchodilator nebulizers Azithromycin O2 supplement as needed Hx anxiety Hydroxyzine PRN Diazepam PRN Ex-smoker Nicotine patche Bupropion bid DVT PPx Lovenox Time Spent With Patient Time: Total time managing care of this patient today ____ minutes. Quality Stroke Does the patient have a stroke diagnosis?: No VTE Prior VTE?: No VTE Risk Level:: Medical - moderate - high VTE Device Contraindication: Treatment Not Indicated VTE Drug Contraindication: N/A - Med Ordered
[2023-03-24 16:56] LABS: Reflex Lactate? 2 Y
[2023-03-24] MEDS: guaiFENesin LA 600 MG TAB.ER.12H PO ×2 (16:58→20:23)
[2023-03-24] MEDS: Butalb/Acetamin/Caff 50/325/40 TABLET 1 TAB PO (16:58)
[2023-03-24] MEDS: diazePAM 5 MG TABLET PO (16:59)
[2023-03-24] MEDS: Albuterol/Iprat 2.5/0.5MG 3 ML AMPUL.NEB INHALE (19:19)
[2023-03-24] MEDS: Benzonatate 100 MG CAPSULE PO (20:23)
[2023-03-24] MEDS: Calcium + Vitamin D 250 MG TABLET 500 MG PO (20:23)
[2023-03-24] MEDS: 0.9 % Sodium Chloride Flush 3 ML SYRINGE IVFLUSH (20:26)
[2023-03-24] MEDS: hydrOXYzine HCL 25 MG TABLET 12.5 MG PO (20:36)
[2023-03-25 04:00] VITALS: BP 130/58; PULSE 70; RESP 18; TEMP 36.3; O2SAT 95
[2023-03-25 06:36] LABS: Anion Gap 14 (12-20); Blood Urea Nitrogen 17 mg/dL (9-16); Carbon Dioxide 22 mmol/L (22-29); Chloride 109 mmol/L (96-108); Creatinine Clr Calc Pharmacy 62.2; Estimated Glomerular Filt Rate > 60; Glucose Random 94 mg/dL (60-115); Potassium 3.5 mmol/L (3.3-5.1); Sodium 141 mmol/L (135-145)
[2023-03-25 06:38] LABS: ABG Base Excess -1.8 mmol/L; ABG HCO3 21 mmol/L (22-26); ABG pCO2 31 mmHg (32-45); ABG pH 7.43 (7.35-7.45); ABG pO2 79 mmHg (83-108)
[2023-03-25 07:25] VITALS: BP 145/75; PULSE 75; RESP 20; TEMP 36.4; O2SAT 96
[2023-03-25 07:51] VITALS: PULSE 78; RESP 20; O2SAT 96
[2023-03-25] MEDS: Albuterol/Iprat 2.5/0.5MG 3 ML AMPUL.NEB INHALE (07:51)
[2023-03-25] MEDS: Fluticasone/Umeclidinium/Vilanterol 100/62.5/25 BLST.W.DEV 1 PUFF INHALE (08:07)
[2023-03-25] MEDS: methylPREDNISolone Sod Succ 40 MG/ML VIAL IVPUSH (08:10)
[2023-03-25] MEDS: buPROPion HCl XL 300 MG TAB.ER.24H PO (08:10)
[2023-03-25] MEDS: 0.9 % Sodium Chloride Flush 3 ML SYRINGE IVFLUSH (08:10)
[2023-03-25] MEDS: Benzonatate 100 MG CAPSULE PO (08:10)
[2023-03-25] MEDS: Calcium + Vitamin D 250 MG TABLET 500 MG PO (08:10)
[2023-03-25] MEDS: Aspirin Enteric Coated 81 MG TABLET.DR PO (08:10)
[2023-03-25] MEDS: Nicotine 21 MG PATCH.TD24 TRANSDERMA (08:11)
[2023-03-25] MEDS: guaiFENesin LA 600 MG TAB.ER.12H PO (08:11)
--- NOTE | 2023-03-25 08:55 | MHC.CM.PN ---
Addendum entered by Beverly Orozco 03/25/23 11:27: DP: PT HAS BEEN MEDICALLY CLEARED FOR DC HOME, NO SERVICES. [facility] SHUTTLE BOOKED FOR 12:30 PM Original Note: [facility] DELIVERED PT LIVES ALONE IN A FIRST FLOOR APT. [place] AT BASELINE. USES NEBULIZER ([facility]) + COVID [facility] WILLING TO COMPLETE A HCP WHILE HERE. PCP DR. DANG IN [facility]. DP: HOME, NO SERVICES ANTICIPATED. PT WILL NEED [facility] SHUTTLE FOR TRANSPORT HOME. CM WILL CONTINUE TO FOLLOW FOR ANY CHANGE IN PLAN.
[2023-03-25] MEDS: diazePAM 5 MG TABLET PO (10:28)
[2023-03-25] MEDS: Butalb/Acetamin/Caff 50/325/40 TABLET 1 TAB PO (10:28)
--- NOTE | 2023-03-25 11:19 | PM.DS ---
DS: Providers Provider Date of Service: 03/25/23 Date of admission: 03/24/23 16:40 Primary care physician: Jemima Perry MD DS: Diagnosis Discharge Diagnosis (1) Acute exacerbation of chronic obstructive airways disease: Status: Acute DS: Summary Hospital Course Hospital Course: Admission note HPI A 67 years old lady with PMH of COPD , ex-smoker and anxiety who presents to the hospital with dyspnea and difficulties breathing. She was evaluated in ED on 03/22 and discharged home on PO steroids and antibiotics with rescue inhalor but she reports did not improve as she was feeling very distressed walking few steps with associated dyspnea and weakness. denies any chest pain, palpitations, sweating, nausea, vomitng or urinary symptoms. In ED she was unable to finish sentences, using accessory muscles but did not drop her oxygen level. CXR was negative for any infiltrates. Hospital course Admitted for COPD exacerbation. responded well to steroids, nebulizers and antibiotic. Did not require Oxygen supplement. respiratory distress resolved and was able to ambulate reporting feeling close to baseline. Continue home inhalors Use antibiotic as prescribed Tapering dose of steroids Use nebulizer 4-6 times daily for the next 3 days then as needed Time Spent with Patient Time attestation: Total time managing care of this patient today ____ minutes. Discharge coordination time: Less than 30 minutes Quality: Safe Use of Opioids Does Pt have an Active Cancer Diagnosis on the Problem List?: No Quality: Stroke Does the patient have a stroke diagnosis?: No Physical Exam Vital Signs: Vital Signs: Last Vital Signs Temp 97.6 F 03/25/23 07:25 Pulse 78 03/25/23 07:51 Resp 20 03/25/23 07:51 BP 145/75 H 03/25/23 07:25 Pulse Ox 96 03/25/23 07:25 O2 Del Method Room Air 03/25/23 07:25 BMI result Body Mass Index 18.1 Const: Other: Constitutional : Awake, interactive, not it respiratory distress Neck : Normal inspection, Supple Cardiovascular : RRR, no JVP, no lower extremity edema Respiratory : decreased bilateral air entry, no crackles, no more wheezes, finishing sentences Gastrointestinal: soft, lax, Normal bowel sounds, Non tender Skin : Warm, Dry Neurological : Alert & oriented x3, No focal deficit DS: Data Data Completed and Pending Labs on day of discharge: Laboratory Results - last 24 hr 03/24/23 03/24/23 03/24/23 11:47 11:47 11:47 WBC 8.2 RBC 4.43 Hgb 13.9 Hct 43.5 MCV 98.2 H MCH 31.4 MCHC 32.0 RDW 12.3 Plt Count 315 MPV 10.0 Immature Gran % (Auto) 0.5 H Neut % (Auto) 82.9 H Lymph % (Auto) 14.4 L [place] % (Auto) 1.6 L Eos % (Auto) 0.1 Baso % (Auto) 0.5 Lymph # (Auto) 1.2 [place] # (Auto) 0.1 Eos # (Auto) 0.0 Baso # (Auto) 0.0 Abs Immat Gran (auto) 0.04 H Absolute Neuts (auto) 6.8 Absolute Nucleated RBC 0.000 Nucleated RBC % (auto) 0.0 PT INR APTT O2 Saturation ABG pH at Pt Temp ABG pCO2 at Pt Temp ABG pO2 at Pt Temp ABG HCO3 ABG Base Excess (Actual) Sodium 143 Potassium 4.4 D Chloride 109 H Carbon Dioxide 25 Anion Gap 13 BUN 13 Creatinine 0.78 Estim Creat Clear Calc 51.0 Estimated GFR > 60 Random Glucose 119 H Lactic Acid Lactic Acid F/U @ 2Hr Calcium 9.4 D Urine Color Urine Appearance Urine pH Ur Specific [place] Urine Protein Urine Glucose (UA) Urine Ketones Urine Blood Urine Nitrite Ur Leukocyte Esterase COVID-19 ([facility]) Negative COVID-19 Clin Com See Note 03/24/23 03/24/23 03/24/23 11:47 11:47 11:47 WBC RBC Hgb Hct MCV MCH MCHC RDW Plt Count MPV Immature Gran % (Auto) Neut % (Auto) Lymph % (Auto) [place] % (Auto) Eos % (Auto) Baso % (Auto) Lymph # (Auto) [place] # (Auto) Eos # (Auto) Baso # (Auto) Abs Immat Gran (auto) Absolute Neuts (auto) Absolute Nucleated RBC Nucleated RBC % (auto) PT 11.1 INR 0.9 APTT 29.3 O2 Saturation ABG pH at Pt Temp ABG pCO2 at Pt Temp ABG pO2 at Pt Temp ABG HCO3 ABG Base Excess (Actual) Sodium Potassium Chloride Carbon Dioxide Anion Gap BUN Creatinine Estim Creat Clear Calc Estimated GFR Random Glucose Lactic Acid 3.9 H* Lactic Acid F/U @ 2Hr Calcium Urine Color Yellow Urine Appearance Clear Urine pH 5.5 Ur Specific [place] <= 1.005 Urine Protein Negative Urine Glucose (UA) Negative Urine Ketones Negative Urine Blood Negative Urine Nitrite Negative Ur Leukocyte Esterase Negative COVID-19 ([facility]) COVID-19 Clin Com 03/24/23 03/24/23 03/25/23 13:44 14:51 05:18 WBC RBC Hgb Hct MCV MCH MCHC RDW Plt Count MPV Immature Gran % (Auto) Neut % (Auto) Lymph % (Auto) [place] % (Auto) Eos % (Auto) Baso % (Auto) Lymph # (Auto) [place] # (Auto) Eos # (Auto) Baso # (Auto) Abs Immat Gran (auto) Absolute Neuts (auto) Absolute Nucleated RBC Nucleated RBC % (auto) PT INR APTT O2 Saturation 96.0 ABG pH at Pt Temp 7.43 ABG pCO2 at Pt Temp 31 L ABG pO2 at Pt Temp 79 L ABG HCO3 21 L ABG Base Excess (Actual) -1.8 Sodium 141 Potassium 3.5 D Chloride 109 H Carbon Dioxide 22 Anion Gap 14 BUN 17 H Creatinine 0.64 Estim Creat Clear Calc 62.2 Estimated GFR > 60 Random Glucose 94 Lactic Acid Lactic Acid F/U @ 2Hr 4.1 H* Calcium 9.0 Urine Color Urine Appearance Urine pH Ur Specific [place] Urine Protein Urine Glucose (UA) Urine Ketones Urine Blood Urine Nitrite Ur Leukocyte Esterase COVID-19 ([facility]) COVID-19 Clin Com Imaging Chest x-ray: Radiologist's impression: ITS Impressions Chest X-Ray 03/24/23 10:57 IMPRESSION: Probable chronic mild interstitial changes without cement change. No acute cardiopulmonary process. Discharge Plan Discharge Anticipated Discharge Date/Time: 03/25/23 10:35 Patient Disposition: Home, Self-Care Discharge Diagnosis: COPD Exacerbation Referrals: Jemima Perry MD [Primary Care Provider] - 1 Week Discharge Medications: New benzonatate 100 mg Capsule 100 mg PO TID Qty: 30 0RF azithromycin 500 mg Tablet 500 mg PO Q24H Qty: 4 0RF guaifenesin [Mucinex] 600 mg Tablet Extended Release 12hr 600 mg PO BID Qty: 10 0RF prednisone 10 mg tablet See Taper PO DIRECTED Qty: 30 0RF Taper: Prednisone 40 mg daily for 3 Days and 0 Hour 30 mg daily for 3 Days and 0 Hour 20 mg daily for 3 Days and 0 Hour 10 mg daily for 3 Days and 0 Hour Rx Instructions: see taper instructions Continued albuterol sulfate 2.5 mg /3 mL (0.083 %) solution for nebulization 2.5 mg inhalation Q6H Qty: 75 0RF albuterol sulfate 90 mcg/actuation aerosol powdr breath activated 2 inh inhalation Q4-6H PRN (Reason: shortness of breath or wheezing) Qty: 1 0RF bupropion HCl 150 mg tablet sustained-release 12 hr 150 mg PO BID aspirin 81 mg Tablet,Delayed Release (Dr/Ec) 81 mg PO DAILY ocwnuyncip-nptvuzvnybvav-pssb 50-325-40 mg tablet 1 tab PO DAILY PRN (Reason: Headache) nicotine 21 mg/24 hr patch 24 hour 1 patch topical DAILY hydroxyzine HCl 25 mg tablet 12.5 mg PO BEDTIME PRN (Reason: Sleep) calcium carbonate-vitamin D3 600 mg-10 mcg (400 unit) tablet 1 tab PO BID Trelegy Ellipta 100-62.5-25 mcg blister with device 1 ea inhalation DAILY diazepam 5 mg tablet 5 mg PO QID PRN (Reason: Anxiety) Discontinued doxycycline hyclate 100 mg capsule 100 mg PO BID 10 Days Qty: 20 0RF prednisone 20 mg tablet 40 mg PO DAILY 5 Days Qty: 10 0RF Discharge Orders: Discharge Order (Routine); Ordered 03/25/23 Ordered By: Brina Ellison Diet: Advance to usual diet Activity on Discharge: As tolerated Stand Alone Forms: Patient Portal Discharge page Care Plan Goals: Read below Health Concerns: Read below Plan of Treatment: Read below Assessment: You were admitted for COPD exacerbation. responded well to treatment with steroids and nebulizers. Continue home inhalors Use antibiotic as prescribed Tapering dose of steroids Use nebulizer 4-6 times daily for the next 3 days then as needed
[2023-03-25] MEDS: Azithromycin 500 MG TABLET PO (11:28)
== END 2023-03-25 12:52 | disposition home or self-care (01) ==
LOC: HO.ED 12:53 → HO.EDOVER 16:49 → HO.S3 16:58
PROVIDERS: Admitting Provider Student in an Organized Health Care Education/Training Program; Emergency Provider Emergency Medicine; PCP Internal Medicine; Visit Provider Student in an Organized Health Care Education/Training Program
DX: J44.1 Chronic obstructive pulmonary disease with (acute) exacerbation (principal); R06.00 Dyspnea, unspecified; R05.9 Cough, unspecified; Z20.822 Contact with and (suspected) exposure to COVID-19; Z99.81 Dependence on supplemental oxygen
CPT/HCPCS: 36415; 71045; 80048; 81003; 82803; 83605; 85025; 85610; 85730; 87040; 87635; 93005; 94640; 96365; 96366; 96367; 96368; 96375; 99221; 99285; J0456; J0696; J1885; J2920; J2930; J3475

== ENCOUNTER → 2023-03-24 10:49 | Outpatient (BNV) | payer MEDICARE, MEDICAID, SELFPAY | PROVIDERS: Emergency Provider Emergency Medicine; PCP Internal Medicine; Visit Provider Internal Medicine Cardiovascular Disease | DX: R06.02 Shortness of breath (principal) | CPT/HCPCS: 93010 ==

== ENCOUNTER → 2023-03-24 16:40 | Outpatient (BNV) | payer MEDICARE, MEDICAID, SELFPAY | PROVIDERS: Admitting Provider Student in an Organized Health Care Education/Training Program; Emergency Provider Emergency Medicine; PCP Internal Medicine; Visit Provider Student in an Organized Health Care Education/Training Program | DX: J44.1 Chronic obstructive pulmonary disease with (acute) exacerbation (principal) | CPT/HCPCS: 99222; 99238 ==